=== PATIENT | male | born 1990 | race African-American/Black ===

== ENCOUNTER → 2016-07-28 | Day surgery (SDC) | payer BC ==
[~2016-07-28] MED LIST: IV RINGERS,LACTATED 1000ML 1,000 ML IV SCH; LIDOCAINE 2% PF Vial for OR 5 ML VIAL. ONE; PROPOFOL 20 ML IV ONE; RANI150C PO
[2016-07-28 08:28] VITALS: BP 115/65
--- NOTE | 2016-08-01 16:38 | PATHOLOGY ---
PATHOLOGY REPORT * * * * * * * * FINAL DIAGNOSIS: Gastric biopsy: - Congestion and slight chronic inflammation. COMMENT: Sections of the gastric biopsy reveal gastric antral / body transition mucosa showing congestion and slight chronic inflammation. There are scattered admixed small numbers of eosinophils. An immunoperoxidase stain for Helicobacter is obtained. There are no Helicobacter organisms identified. There is no evidence of malignancy. (JPM:[id number]; d/t: 08/01/2016) REPORT ELECTRONICALLY SIGNED BY: River Garzon M.D. DATE/TIME: 08/01/2016 16:37 * * * * * * * * GROSS PATHOLOGY: Received in formalin labeled "Rayshawn Terry, gastric biopsy," is a segment of cyr soft tissue measuring 0.6 cm in maximum dimension. The specimen is submitted entirely in cassette A1. (KAH; 07/29/2016) INITIAL CPT CODE(S): A; 47882, 23191 Professional services performed [place] [facility] [place] [address] Technical services performed by [facility] at [address] [place] [address]. SPECIMEN(S) RECEIVED: A.Gastric biopsy CLINICAL HISTORY: Dysphagia, reflux PATIENT: RAYSHAWN TERRY /AGE: 305/13/1990 (Age: 26) PATIENT #: [id number] ALT CASE #: SPECIMEN COLLECTION DATE: 07/28/2016 SPECIMEN RECEIVED DATE: 07/28/2016 [facility] - [address] [place] [address] - PHONE: [phone] * * * END OF REPORT * * *
== END | disposition home or self-care (01) ==
LOC: ENDOS 07:13
PROVIDERS: ATTEND Surgery
DX: K21.0 Gastro-esophageal reflux disease with esophagitis (principal); K29.50 Unspecified chronic gastritis without bleeding; K44.9 Diaphragmatic hernia without obstruction or gangrene; Z82.49 Family history of ischemic heart disease and other diseases of the circulatory system
CPT/HCPCS: 43239; 88305; 88342; J2704

== ENCOUNTER → 2016-08-29 | Outpatient (CLI) | payer BC ==
[2016-07-28 08:28] VITALS: BP 115/65
[~2016-08-29] MED LIST changes: -IV RINGERS,LACTATED 1000ML 1,000 ML IV SCH; -LIDOCAINE 2% PF Vial for OR 5 ML VIAL. ONE; -PROPOFOL 20 ML IV ONE
--- NOTE | 2016-08-29 16:51 | RAD ---
Scrotal ultrasound, 08/29/2016: History: Testicular mass The right testicle measures 4.7 x 2.8 x 2.1 cm while the left testicle measures 4.4 x 2.7 x 1.7 cm. No testicular mass is seen. There is symmetric blood flow within the testicles. No epididymal abnormality is seen. Small bilateral hydroceles are noted. A minimal right hydrocele is present. IMPRESSION: 1. Bilateral varicoceles. 2. No testicular abnormality is detected.
== END | disposition home or self-care (01) ==
LOC: US 13:47
PROVIDERS: ATTEND Nurse Practitioner Family
DX: N50.89 Other specified disorders of the male genital organs (principal); I86.1 Scrotal varices
CPT/HCPCS: 76870